=== PATIENT | female | born 1980 | race African-American/Black ===

== ENCOUNTER 2016-12-21 16:44 | Emergency (ER) | payer SELFPAY ==
[~2016-12-21] VITALS: Ht 157.5 cm; Wt 63.5 kg
[~2016-12-21 16:44] MED LIST: DICL75 PO
[2016-12-21 16:46] VITALS: BP 159/86; PULSE 64; RESP 16; TEMP 97; O2SAT 100
--- NOTE | 2016-12-21 17:17 | PD ---
Physical Exam Time Seen by Provider: 17:15 Narrative Pt presents to ED for evaluation of Left Ankle that she injured two days ago while playing football. Has been elevating and icing. Pain is 5/10. Pain is exacerbated by flexion and rotation. Has been taking ibuprofen. Has not taken any today. No medical history. Data Data Last Documented VS Vital Signs Date Time Temp Pulse Resp B/P Pulse Ox O2 Delivery O2 Flow Rate FiO2 12/21/16 16:46 97.0 64 16 159/86 100 Room Air [facility] Medical Record Reviewed: Yes Supervised Visit with ALFIE: No Narrative Course Pt here for evaluation of left ankle pain. Appears well. Xray ordered. Condition: Stable Isis Cordova Dec 21, 2016 17:17
--- NOTE | 2016-12-21 17:38 | RADRPT ---
EXAM DATE/TIME: 12/21/2016 17:32 [facility] COMPARISON: No previous studies available for comparison. INDICATIONS : Left ankle pain after fall. MEDICAL HISTORY : None. SURGICAL HISTORY : None. ENCOUNTER: Initial ACUITY: 3 days PAIN SCORE: 6/10 LOCATION: Left lateral ankle. FINDINGS: Three view exam was performed of the left ankle. The bony structures are in normal alignment. No ev idence of fracture, dislocation, or soft tissue swelling. The ankle mortise is intact. No radiopaqu e foreign bodies are seen. Bony mineralization is normal. CONCLUSION: No acute fracture. Oscar Lam MD on December 21, 2016 at 17:36 Board Certified Radiologist. This report was verified electronically.
[2016-12-21] MEDS ORDERED: IBUP800T23 PO (17:48)
--- NOTE | 2016-12-21 17:50 | PD ---
HPI Chief Complaint: Injury Time Seen by Provider: 17:47 Travel History International Travel<30 days: No Contact w/Intl Traveler<30days: No Traveled to known affect area: No History of Present Illness HPI 36-year-old female presents emergency Department with complaint of left ankle pain and swelling after injuring it playing football on Wednesday. Denies paresthesias, loss of sensation to the affected extremity. Reports decreased range of motion secondary to pain and swelling. Pain and swelling to lateral aspect. Has tried taking ibuprofen, elevating, icing with no relief of symptoms. Says swelling has subsided some compared to an injury first happened. Denies fever, vomiting. No other modifying factors or associated signs and symptoms. PFSH Past Medical History Diminished Hearing: No Immunizations Current: Yes Social History Alcohol Use: Yes (1-2 dly) Tobacco Use: Yes Substance Use: No Allergies-Medications (Allergen,Severity, Reaction): Coded Allergies: No Known Allergies (Unverified , 12/21/16) Reported Meds & Prescriptions Reported Meds & Active Scripts Active Ibuprofen 800 Mg Tab 800 Mg PO Q6HR PRN Diclofenac Sodium Dr (Diclofenac Sod) 75 Mg Tab 75 Mg PO BID PRN Review of Systems Except as stated in HPI: all other systems reviewed are Neg Physical Exam Narrative GENERAL: Well-nourished, well-developed female patient, in no acute distress SKIN: Warm and dry. HEAD: Atraumatic. Normocephalic. EYES: Pupils equal and round. No scleral icterus. No injection or drainage. ENT: Mucosa pink and moist. Airway patent. NECK: Trachea midline. CARDIOVASCULAR: Regular rate. RESPIRATORY: No accessory muscle use. GASTROINTESTINAL: Flat. MUSCULOSKELETAL: Left ankle with tenderness and swelling to the lateral malleolar zone; no obvious deformity; left lower extremity is supple and non- tense with 2+ pedal pulses and sensory intact. No obvious deformities. No clubbing. No cyanosis. No edema. NEUROLOGICAL: Awake and alert. Oriented 3. No obvious cranial nerve deficits. Motor grossly within normal limits. Normal speech. PSYCHIATRIC: Appropriate mood and affect; insight and judgment normal. Data Data Last Documented VS Vital Signs Date Time Temp Pulse Resp B/P Pulse Ox O2 Delivery O2 Flow Rate FiO2 12/21/16 16:46 97.0 64 16 159/86 100 Room Air Orders Ankle, Complete ([id number]) (12/21/16 ) Splint Or Brace Apply/Monitor (12/21/16 17:50) Crutches (12/21/16 17:50) Brace Ankle Stirrup (12/21/16 ) MDM Medical Decision Making Medical Screen Exam Complete: Yes Emergency Medical Condition: Yes Medical Record Reviewed: Yes Differential Diagnosis Ankle sprain, ankle fracture, ankle dislocation Narrative Course 36-year-old female with left ankle injury. Left ankle x-ray with no acute findings. Ankle stirrup splint and crutches provided for support. Ibuprofen prescribed for home. Patient verbalizes understanding and agreement with treatment plan. Patient is medically cleared and stable for discharge. Discussed reasons to return to the emergency department. Instructed patient to follow up with primary care provider. Patient agrees with treatment plan. The patients vital signs are stable and the patient is stable for outpatient follow- up and treatment. Patient discharged home, stable and in no acute distress. Diagnosis Primary Impression: Left ankle sprain Qualified Code: S93.402A - Sprain of left ankle, unspecified ligament, initial encounter Referrals: Primary Care Physician Patient Instructions: Ankle Sprain (ED), Ankle Sprain Exercises (GEN), Crutch Instructions (ED), General Instructions Departure Forms: Tests/Procedures, Work Release Enter return to work date: Dec 28, 2016 Additional Instructions: Tylenol or ibuprofen as directed and as needed for pain and inflammation Rest, ice, compress, and elevate extremity to decrease pain and inflammation Ankle Brace for support Crutches for support Avoid aggravating activity; increase activity as tolerated Follow-up with primary care provider Return to the emergency department immediately with worsening symptoms Med/Other Pt SpecificInfo: Prescription(s) given Scripts Ibuprofen 800 Mg [id number] Mg PO Q6HR PRN (PAIN) #30 TAB Ref 0 Prov:Patria Marley 12/21/16 Disposition: 01 DISCHARGE HOME Condition: Stable Patria Marley Dec 21, 2016 17:50
== END 2016-12-21 17:57 | disposition home or self-care (01) ==
LOC: NEPK 16:44
DX: S93.402A Sprain of unspecified ligament of left ankle, initial encounter (principal); X50.1XXA Overexertion from prolonged static or awkward postures, initial encounter; Y93.61 Activity, american tackle football; Y92.39 Other specified sports and athletic area as the place of occurrence of the external cause; Z72.0 Tobacco use
CPT/HCPCS: 73610; 99283; E0113; L1906

== ENCOUNTER 2017-05-29 02:35 | Emergency (ER) | payer BC ==
[~2017-05-29] VITALS: Ht 157.5 cm; Wt 60.0 kg
[~2017-05-29 02:35] MED LIST changes: +IBUP800T23 PO
[2017-05-29 02:36] VITALS: BP 159/105; PULSE 97; RESP 16; TEMP 97.9; O2SAT 98
--- NOTE | 2017-05-29 02:54 | PD ---
HPI Chief Complaint: Injury Time Seen by Provider: 02:53 Travel History International Travel<30 days: No Contact w/Intl Traveler<30days: No Traveled to known affect area: No History of Present Illness HPI 37-year-old female presents to emergency department for evaluation of left shoulder pain. Patient was running through her kitchen when she slipped and fell, landing on her left shoulder. Patient reports severe pain in left shoulder. Rates it a 10 out of 10. It does not radiate anywhere. She did not hit her head or lose consciousness. Denies any alterations sensation in the affected extremity. States she is unable to move the left shoulder due to pain. She has no other symptoms to report. PFSH Past Medical History Medical History: Denies Significant Hx Diminished Hearing: No Immunizations Current: Yes Tetanus Vaccination: > 5 Years ?: Not LMP: 05/07/17 Past Surgical History Surgical History: No Previous Surgery Social History Alcohol Use: Yes (1-2 dly) Tobacco Use: Yes (2 A DAY CIGAR) Substance Use: No Allergies-Medications (Allergen,Severity, Reaction): Coded Allergies: No Known Allergies (Unverified , 05/29/17) Reported Meds & Prescriptions Reported Meds & Active Scripts Active Ibuprofen 600 Mg Tab 600 Mg PO Q8HR PRN Review of Systems Except as stated in HPI: all other systems reviewed are Neg Physical Exam Narrative GENERAL: Well-nourished, well-developed female patient in no acute distress SKIN: Focused skin assessment warm/dry. HEAD: Normocephalic. EYES: No scleral icterus. No injection or drainage. NECK: Supple, trachea midline. No JVD or lymphadenopathy. CARDIOVASCULAR: Regular rate and rhythm without murmurs, gallops, or rubs. RESPIRATORY: Breath sounds equal bilaterally. No accessory muscle use. GASTROINTESTINAL: Abdomen soft, non-tender, nondistended. MUSCULOSKELETAL: No cyanosis, or edema. His deformity. Patient is cradling the left upper extremity near her body. Tenderness also palpation of the anterior aspect of the left shoulder. Distal pulses are palpable. Cap refill is within normal limits. BACK: Nontender without obvious deformity. No CVA tenderness. Data Data Last Documented VS Vital Signs Date Time Temp Pulse Resp B/P (MAP) Pulse Ox O2 Delivery O2 Flow Rate FiO2 05/29/17 04:04 05/29/17 02:36 97.9 97 16 98 Room Air Orders Orders Ketorolac Inj (Toradol Inj) (05/29/17 03:00) Shoulder, Limited(2vws) (05/29/17 ) Splint Or Brace Apply/Monitor (05/29/17 03:30) Sling Cradle Arm (05/29/17 ) MDM Medical Decision Making Medical Screen Exam Complete: Yes Emergency Medical Condition: Yes Medical Record Reviewed: Yes Differential Diagnosis Fracture versus sprain versus contusion versus dislocation Narrative Course 37 year-old female presents to emergency department for evaluation left foot pain. X-ray imaging is complete. Patient is treated for pain. Last Impressions Shoulder X-Ray 05/29/17 0000 Signed Impressions: Service Date/Time: Monday, May 29, 2017 02:56 - CONCLUSION: 1. Negative two-view examination of the glenohumeral joint. 2. Possible superior dislocation of the lateral clavicle. Kali Queen MD Patient is placed in a sling. Results are discussed with her. She is counseled on care and agrees to return immediately if any acute worsening symptoms. Diagnosis Primary Impression: Injury of left shoulder Qualified Codes: S49.92XA - Unspecified injury of left shoulder and upper arm , initial encounter Additional Impression: Acromioclavicular joint separation Qualified Codes: S43.102A - Unspecified dislocation of left acromioclavicular joint, initial encounter Referrals: Orthopaedic Surgeon Primary Care Physician Patient Instructions: Acromioclavicular Separation (ED), General Instructions Additional Instructions: Sling for support Ice to the affected area 20 minutes on; 20 minutes off over the next 24 hours then as needed Follow up with a primary care provider Seek orthopedic evaluation if symptoms persist Return to ED with acute worsening of symptoms Med/Other Pt SpecificInfo: Prescription(s) given Scripts Ibuprofen (Ibuprofen) 600 Mg Tab 600 MG PO Q8HR Y for PAIN, #30 TAB 0 Refills Prov: Isis Cordova EDYTA 05/29/17 Disposition: 01 DISCHARGE HOME Condition: Stable TashaIsis LAN May 29, 2017 02:54
[2017-05-29] MEDS ORDERED: KETOROLAC TROMETHAMINE 60 MG/2 ML (IM) VIAL IM ONE (03:00)
--- NOTE | 2017-05-29 03:17 | RADRPT ---
EXAM DATE/TIME: 05/29/2017 02:56 [facility] COMPARISON: No previous studies available for comparison. INDICATIONS : Left shoulder pain from running into a wall. MEDICAL HISTORY : None. SURGICAL HISTORY : None. ENCOUNTER: Initial ACUITY: 1 day PAIN SCORE: 10/10 LOCATION: Left shoulder FINDINGS: There is preserved alignment of the humeral head and glenoid on these 2 views. No fracture seen. On the frontal view, the distal clavicle appears superior to the acromion suggesting a.c. ligament disr uption. The visualized left upper ribs are intact. CONCLUSION: 1. Negative two-view examination of the glenohumeral joint. 2. Possible superior dislocation of the lateral clavicle. Kali Queen MD on May 29, 2017 at 3:14 Board Certified Radiologist. This report was verified electronically.
[2017-05-29] MEDS ORDERED: IBUP-232 PO (03:33)
== END 2017-05-29 04:06 | disposition home or self-care (01) ==
LOC: NEPE 02:35
DX: S49.92XA Unspecified injury of left shoulder and upper arm, initial encounter (principal); S43.102A Unspecified dislocation of left acromioclavicular joint, initial encounter; Z72.0 Tobacco use; W01.0XXA Fall on same level from slipping, tripping and stumbling without subsequent striking against object, initial encounter; Y93.02 Activity, running; Y92.000 Kitchen of unspecified non-institutional (private) residence as the place of occurrence of the external cause
CPT/HCPCS: 73030; 96372; 99284; J1885